=== PATIENT | male | born 1960 | race Caucasian/White ===

== ENCOUNTER 2021-07-23 16:53 | Emergency (ER) | payer OTHER | END 2021-07-23 21:11 | disposition home or self-care (01) | LOC: ER1 16:53 | DX: U07.1 COVID-19 (principal); Z23 Encounter for immunization; I25.10 Atherosclerotic heart disease of native coronary artery without angina pectoris; I10 Essential (primary) hypertension; E78.5 Hyperlipidemia, unspecified | CPT/HCPCS: 99283; M0243 ==